=== PATIENT | male | born 1965 | race Caucasian/White ===

== ENCOUNTER 2021-12-30 13:09 | Day surgery (SDC) | payer OTHER ==
[2021-12-28 11:35] LABS: BASOPHILS # (AUTO) 0.1 X10'3 (0-0.2); BASOPHILS % (AUTO) 0.9 % (0-1); EOSINOPHILS # (AUTO) 0.5 X10'3 (0-0.9); EOSINOPHILS % (AUTO) 7.2 % (0-6); LYMPHOCYTES # (AUTO) 2.2 X10'3 (1.1-4.8); LYMPHOCYTES % (AUTO) 34.3 % (21-51); MEAN CORPUSCULAR VOLUME 90.9 FL (78-98); MONOCYTES # (AUTO) 0.6 X10'3 (0-0.9); MONOCYTES % (AUTO) 8.6 % (2-12); NEUTROPHILS # (AUTO) 3.2 X10'3 (1.8-7.7); PRE OP HEMATOCRIT 46.6 % (42.0-52.0); PRE OP HEMOGLOBIN 15.4 g/dL (14.0-17.9); PRE OP PLATELET COUNT 238 X10'3 (140-440); RED BLOOD COUNT 5.13 X10'6 (4.70-6.10); RED CELL DISTRIBUTION WIDTH 14.4 % (11.5-14.5)
[2021-12-28 11:54] LABS: ALBUMIN 3.8 G/DL (3.4-5.0); ALBUMIN/GLOBULIN RATIO 1.2 (1.1-1.5); ALKALINE PHOSPHATASE 157 IU/L (46-116); BLOOD UREA NITROGEN 21 MG/DL (7-18); BUN/CREATININE RATIO 24.1 (5.4-32.0); CALCIUM 9.2 MG/DL (8.5-10.1); CHLORIDE 106 MMOL/L (99-107); CREATININE 0.87 MG/DL (0.60-1.10); PRE OP ALT 69 U/L (30-65); PRE OP ANION GAP 7 (8-16); PRE OP AST 28 U/L (10-37); PRE OP BILIRUB, TOTAL 0.4 MG/DL (0.0-1.0); PRE OP GLUCOSE 96 MG/DL (70-104); PRE OP POTASSIUM 4.1 MMOL/L (3.4-5.1); PRE OP SODIUM 142 MMOL/L (135-145); TOTAL CARBON DIOXIDE 28.6 MMOL/L (24-32); eGFR > 90 ML/MIN
[~2021-12-30] VITALS: Ht 182.9 cm; Wt 110.0 kg
[2021-12-30] VITALS (7 sets, daily range): BP systolic 120–152; BP diastolic 86–101
[~2021-12-30 13:09] MED LIST: ATOR10TA70 PO; CETI-90 PO; CYCL-1 PO; GABA-530 PO; OMEP20CA16 PO; cefazolin/dext.iso 2gm/50ml IV ONE; famotidine 20mg tablet PO ONE; ringers solution, lacted 1,000 ML IV SCH
[2021-12-30] MEDS ORDERED: meperidine/PF 25mg/ml syringe IV PRN ×3 (16:20)
[2021-12-30] MEDS ORDERED: proCHLORperazine 10 MG/2 ml inj IV PRN (16:20)
[2021-12-30] MEDS ORDERED: ondansetron/PF 4mg/2ml inj IV PRN (16:20)
[2021-12-30] MEDS ORDERED: morphine 2 MG/ML inj. syringe IV PRN (16:20)
[2021-12-30] MEDS ORDERED: ringers solution, lacted 1,000 ML IV SCH (16:20)
[2021-12-30] MEDS ORDERED: LIDOcaine 1% 30ml preserv. free vial ONE (17:43)
[2021-12-30] MEDS ORDERED: BUPIVAcaine/PF 2.5mg/ml (0.25%) 10ml vial ONE ×2 (17:43→17:50)
[2021-12-30] MEDS ORDERED: BUPIVACAINE liposomal/PF 13.3 MG/ML vial IM ONE (17:50)
[2021-12-30] MEDS ORDERED: oxyCODONE/APAP 5-325mg tablet PO PRN (17:55)
[2021-12-30] MEDS ORDERED: midazolam 1 mg/ML 2ml injection ONE (18:03)
[2021-12-30] MEDS ORDERED: fentaNYL/PF 50MCG/1 ML 2ML syringe ONE (18:03)
[2021-12-30] MEDS ORDERED: ondansetron/PF 4mg/2ml inj ONE (18:45)
[2021-12-30] MEDS ORDERED: rocuronium 10mg/ml inj IV ONE (18:45)
[2021-12-30] MEDS ORDERED: propofol inj 20 ML IV ONE (18:45)
[2021-12-30] MEDS ORDERED: LIDOcaine 2% (20mg/ml) 5ml vial ONE (18:45)
[2021-12-30] MEDS ORDERED: dexamethasone sod phosphate 4mg/ml inj. ONE (18:45)
--- NOTE | 2021-12-30 19:06 | NUR ---
Received from OR via [facility] IN STABLE CONDITION , accompanied by Anesthesiologist and CLERICAL CAR CHECKER report given by CLERICAL CAR CHECKER AND Anesthesiolgist. Addendum: 12/30/21 at 1926 by Yee Potts RN Amended: Links added.
[2021-12-30] MEDS: morphine 4 MG/ML inj SYRINge IV PRN ×2 (19:18→19:58)
[2021-12-30] MEDS ORDERED: ketorolac trometh. 30mg/ml inj. IV ONE (19:20)
--- NOTE | 2021-12-30 20:21 | NUR ---
PATIENT DISCHARGED FROM PACU IN STABLE CONDITION AFTER WRITTEN AND VERBAL DISCHARGE INSTRUCTIONS GIVEN. PATIENT GAVE VERBAL UNDERSTANDING OF INSTRUCTIONS GIVEN. PATIENT LEFT FACILITY VIA WHEELCHAIR WITH RN. Addendum: 12/30/21 at 2023 by Yee Potts RN Amended: Links added.
== END 2021-12-30 20:21 | disposition home or self-care (01) ==
LOC: PAS 13:09
PROVIDERS: ATTEND Surgery
DX: K42.0 Umbilical hernia with obstruction, without gangrene (principal); Z20.822 Contact with and (suspected) exposure to COVID-19; G62.9 Polyneuropathy, unspecified; E78.5 Hyperlipidemia, unspecified; K21.9 Gastro-esophageal reflux disease without esophagitis; G25.81 Restless legs syndrome; G89.29 Other chronic pain; Z86.19 Personal history of other infectious and parasitic diseases; Z88.8 Allergy status to other drugs, medicaments and biological substances; Z72.89 Other problems related to lifestyle; Z79.899 Other long term (current) drug therapy; Z80.3 Family history of malignant neoplasm of breast; Z80.1 Family history of malignant neoplasm of trachea, bronchus and lung; Z82.49 Family history of ischemic heart disease and other diseases of the circulatory system; Z82.61 Family history of arthritis
CPT/HCPCS: 36415; 49653; 80053; 82948; 85025; 87635; 93005; C1781; C9290; C9803; J0690; J1100; J1885; J2250; J2270; J2405; J2704; J3010; J3490; J7030; J7120; Z7506; Z7508; Z7512; A4215; A4618

== ENCOUNTER 2024-04-18 12:08 | Emergency (ER) | payer OTHER ==
[~2024-04-18] VITALS: Ht 182.9 cm; Wt 110.0 kg
[~2024-04-18 12:08] MED LIST changes: -cefazolin/dext.iso 2gm/50ml IV ONE; -famotidine 20mg tablet PO ONE; -ringers solution, lacted 1,000 ML IV SCH
[2024-04-18 13:18] LABS: BILIRUBIN,URINE NEGATIVE (Neg); CLARITY,URINE SLIGHTLY CLOUDY (Clear); COLOR,URINE YELLOW (Yellow); GLUCOSE, URINE NEGATIVE (Neg); KETONES,URINE 15 mg/dl (Neg); LEUKOCYTE ESTERASE ,URINE NEGATIVE (Neg); NITRITES, URINE NEGATIVE (Neg); OCCULT BLOOD,URINE NEGATIVE (Neg); PROTEIN,URINE NEGATIVE (Neg); UROBILINOGEN,URINE 0.2 E.U/dL (0.2-1.0)
[2024-04-18 13:21] LABS: UA COLLECTION TYPE NON-SPECIFIED
[2024-04-18 13:34] LABS: SQUAMOUS EPITHELIAL CELL,UR NONE SEEN /LPF (FEW)
[2024-04-18 13:36] LABS: WBC,URINE 0-4 /HPF (0-4)
[2024-04-18 13:43] LABS: RBC,URINE NONE SEEN /HPF (0-2)
[2024-04-18 13:47] LABS: AMORPHOUS PHOSPHATES 1+; BACTERIA,URINE FEW /HPF (Neg)
[2024-04-18 13:53] LABS: BASOPHILS % (AUTO) 0.5 % (0-1); EOSINOPHILS # (AUTO) 0.2 X10'3 (0-0.9); EOSINOPHILS % (AUTO) 2.1 % (0-6); HEMATOCRIT 47.7 % (42.0-52.0); HEMOGLOBIN 16.1 g/dl (14.0-17.9); LYMPHOCYTES % (AUTO) 27.6 % (21-51); MEAN CORPUSCULAR HEMOGLOBIN 31.3 PG (27.0-31.0); MEAN CORPUSCULAR HGB CONC 33.6 g/dL (33.0-36.5); MEAN CORPUSCULAR VOLUME 93.2 FL (78-98); MEAN PLATELET VOLUME 9.1 FL (7.4-10.4); MONOCYTES # (AUTO) 0.5 X10'3 (0-0.9); MONOCYTES % (AUTO) 6.7 % (2-12); NEUTROPHILS # (AUTO) 4.7 X10'3 (1.8-7.7); NEUTROPHILS % (AUTO) 63.1 % (42-75); PLATELET COUNT 233 X10'3 (140-440); RED BLOOD COUNT 5.12 X10'6 (4.70-6.10); RED CELL DISTRIBUTION WIDTH 13.7 % (11.5-14.5); WHITE BLOOD COUNT 7.4 X10'3 (4.5-11.0)
[2024-04-18 14:05] LABS: ALANINE AMINOTRANSFERASE 58 U/L (12-78); ALBUMIN/GLOBULIN RATIO 1.1 (1.1-1.5); ALKALINE PHOSPHATASE 112 IU/L (46-116); ANION GAP 6 (8-16); ASPARTATE AMINO TRANSFERASE 27 U/L (10-37); BILIRUBIN,TOTAL 0.8 MG/DL (0.1-1.0); BLOOD UREA NITROGEN 15 MG/DL (7-18); BUN/CREATININE RATIO 19.5 (10.0-20.0); CALCIUM 9.1 MG/DL (8.5-10.1); CHLORIDE 106 MMOL/L (99-107); CREATININE 0.77 MG/DL (0.60-1.10); GLUCOSE 91 MG/DL (70-104); LIPASE 13 U/L (16-77); POTASSIUM 3.8 MMOL/L (3.5-5.1); SODIUM 139 MMOL/L (135-145); TOTAL CARBON DIOXIDE 27.2 MMOL/L (24-32); TOTAL PROTEIN 7.7 G/DL (6.4-8.2); eCRCL 115 ML/MIN; eGFR > 90 ML/MIN
[2024-04-18] MEDS ORDERED: ketorolac trometh inj. 60 MG/2 ML VIAL IM ONE (17:15)
[2024-04-18] MEDS ORDERED: ketorolac trometh. 30mg/ml inj. IM ONE (17:20)
[2024-04-18] MEDS: HYDROcodone/acetaminophen 10/325mg tab PO ONE (17:36)
[2024-04-18] MEDS: ketorolac tromethamine 15mg/ml inj. IM ONE (17:37)
[2024-04-18 19:21] VITALS: BP 132/76; PULSE 85; RESP 16; TEMP 98.4; O2SAT 94
== END 2024-04-18 19:24 | disposition home or self-care (01) ==
LOC: ER 12:09
DX: R10.32 Left lower quadrant pain (principal); G89.29 Other chronic pain; M54.9 Dorsalgia, unspecified; Z88.8 Allergy status to other drugs, medicaments and biological substances
CPT/HCPCS: 36415; 74176; 80053; 81001; 83690; 85025; 96372; 99285; J1885

== ENCOUNTER 2024-09-20 15:54 | Emergency (ER) | payer OTHER ==
[~2024-09-20] VITALS: Ht 182.9 cm; Wt 115.9 kg
[2024-09-20] MEDS: HYDROcodone/acetaminophen 5mg/325mg tablet PO ONE (20:43)
[2024-09-20] MEDS: ondansetron 4mg rapidly disintigrating tab PO ONE (20:43)
[2024-09-20] MEDS ORDERED: HYDR-3965 PO (20:52)
[2024-09-20] MEDS ORDERED: METH-798 PO (20:52)
[2024-09-20 21:19] VITALS: BP 138/92; PULSE 85; RESP 16; TEMP 98.1; O2SAT 94
== END 2024-09-20 21:00 | disposition home or self-care (01) ==
LOC: ER 15:55
DX: G89.29 Other chronic pain (principal); M54.50 Low back pain, unspecified; M54.2 Cervicalgia; Z88.8 Allergy status to other drugs, medicaments and biological substances; Z79.899 Other long term (current) drug therapy; V98.8XXA Other specified transport accidents, initial encounter; Y93.89 Activity, other specified; Y92.89 Other specified places as the place of occurrence of the external cause; Y99.8 Other external cause status
CPT/HCPCS: 72125; 72128; 72131; 99284